=== PATIENT | male | born 1990 | race Two or more races ===

== ENCOUNTER 2024-03-19 22:02 | Emergency (ER) | payer MEDICAID, OTHER ==
[~2024-03-19] VITALS: Ht 188 cm; Wt 109.1 kg
[2024-03-19 22:10] VITALS: BP 135/83; RESP 16; O2SAT 98
[2024-03-19 22:27] LABS: Basophils # (auto) 0 10 ^3/uL (0-0.2); Basophils % (auto) 0.5 % (0.0-2.0); Eosinophils # (auto) 0 10 ^3/uL (0-0.8); Eosinophils % (auto) 0.1 % (0.0-7.0); Hematocrit 45.4 % (41.0-53.0); Hemoglobin 15.9 g/dL (13.5-17.5); Lymphocytes # (auto) 2.2 10 ^3/uL (0.4-5.4); Lymphocytes % (auto) 32.2 % (10.0-50.0); Mean Corpuscular Hemoglobin 32.3 pg (28.0-32.0); Mean Corpuscular Volume 92.1 fL (80.0-100.0); Monocytes # (auto) 0.3 10 ^3/uL (0-1.3); Monocytes % (auto) 4.8 % (0.0-12.0); Neutrophils # (auto) 4.3 10 ^3/uL (1.6-8.6); Neutrophils % (auto) 62.4 % (37.0-80.0); Nucleated Red Blood Cells % 0.2 %; Red Blood Cells 4.94 10^6/uL (4.5-5.90); White Blood Cell 6.9 10^3/uL (4.4-10.8)
[2024-03-19 22:44] LABS: INR 1.09 (0.9-1.15); Partial Thromboplastin Time 24.1 SEC (24.5-34.5); Prothrombin Time 11.5 sec (9.3-11.8)
[2024-03-19 22:54] LABS: Alanine Aminotransferase 16 U/L (7-40); Albumin 4.8 g/dL (3.2-4.8); Alkaline Phosphatase 61 U/L (46-116); Anion Gap 8 (5-15); Aspartate Aminotransferase < 8 U/L (13-40); BUN/Creatinine Ratio 8.5 (10.0-20.0); Blood Urea Nitrogen 9 mg/dL (9-23); Calcium 9.6 mg/dL (8.7-10.4); Carbon Dioxide 24 mmol/L (20-30); Chloride 106 mmol/L (98-107); Glucose 114 mg/dL (74-106); Magnesium 1.8 mg/dL (1.6-2.6); Potassium 3.8 mmol/L (3.5-5.1); Sodium 138 mmol/L (136-145)
[2024-03-19 22:55] LABS: Bilirubin, Total 1.3 mg/dL (0.2-1.0); Total Protein 7.4 g/dL (5.7-8.2)
[2024-03-19] MEDS ORDERED: ALBUTEROL SULF 2.5 MG/0.5ML(0.5%) NEB SOLN NEB ONE (23:00)
[2024-03-19 23:12] VITALS: PULSE 80
[2024-03-20] MEDS ORDERED: ASPirin-EC 325mg tab PO ONE (00:30)
== END 2024-03-20 00:37 | disposition home or self-care (01) ==
LOC: ER 22:02
DX: R07.2 Precordial pain (principal); F19.10 Other psychoactive substance abuse, uncomplicated; J45.909 Unspecified asthma, uncomplicated; F17.210 Nicotine dependence, cigarettes, uncomplicated; F12.10 Cannabis abuse, uncomplicated; Z88.6 Allergy status to analgesic agent
CPT/HCPCS: 36415; 71045; 80053; 83735; 83880; 84484; 85025; 85610; 85730; 93005